=== PATIENT | male | born 1955 | race Caucasian/White ===

== ENCOUNTER → 2017-04-04 | Outpatient (CLI) | payer OTHER ==
[~2017-04-04] MED LIST: ATIVAN2 MG PO; DILAUDID2 MG PO; LISINOPRIL2.5 MG PO
== END | disposition home or self-care (01) ==
LOC: NUC 10:00
DX: R10.11 Right upper quadrant pain (principal); K21.9 Gastro-esophageal reflux disease without esophagitis
CPT/HCPCS: 78226; A9537